=== PATIENT | female | born 1955 | race Caucasian/White ===

== ENCOUNTER 2017-05-26 12:22 | Emergency (ER) | payer OTHER ==
[~2017-05-26] VITALS: Ht 149.9 cm; Wt 62.8 kg
[2017-05-26] MEDS ORDERED: SIMV10TA6 PO (12:47)
[2017-05-26] MEDS ORDERED: LEVO25TA9 PO (12:47)
[2017-05-26] MEDS ORDERED: FLUO20TA28 PO (12:47)
--- NOTE | 2017-05-26 13:18 | NUR ---
Pt states she has lost central vision in Left eye. Gave pt d/c instructions, verbalized understanding.
== END 2017-05-26 13:23 | disposition home or self-care (01) ==
LOC: ER 12:22
DX: H33.21 Serous retinal detachment, right eye (principal); E78.5 Hyperlipidemia, unspecified; Z88.0 Allergy status to penicillin
CPT/HCPCS: A4663